=== PATIENT | male | born 2000 | race Caucasian/White ===

== ENCOUNTER 2021-07-27 11:16 | Emergency (ER) | payer BC, SELFPAY ==
[2021-07-27 11:35] VITALS: BP 137/72; PULSE 66; RESP 12; TEMP 36.5; O2SAT 99
--- NOTE | 2021-07-27 11:53 | ED.MALEGU ---
HPI - Male Genitourinary General Chief complaint: Urogenital-Male Stated complaint: discharge Time Seen by Provider: 07/27/21 12:00 Source: patient Mode of arrival: ambulatory Limitations: no limitations History of Present Illness HPI Narrative: 21-year-old male presented for complaint of urethral discharge, onset yesterday. States it started clear and today noticed slight green color. He endorses one sexual partner who was complaining of similar symptoms about 2 weeks ago, tested negative for STDs, but was treated at that time. However patient was not treated at that time. Patient requests treatment today. Denies abdominal pain, nausea, vomiting, diarrhea, dysuria, hematuria, hematospermia, testicular pain/swelling, fever or chills. Related Data Home Medications Medication Instructions Recorded Confirmed bupropion HCl mg PO 07/27/21 fluphenazine HCl mg 07/27/21 gabapentin 07/27/21 venlafaxine 150 mg PO DAILY 07/27/21 07/27/21 Allergies Allergy/AdvReac Type Severity Reaction Status Date / Time No Known Allergies Allergy Verified 07/27/21 11:35 Review of Systems Review of Systems: CONSTITUTIONAL: Denies body aches, fever, chills, or sweats. CARDIOVASCULAR: Denies chest pain, palpitations, or edema. RESPIRATORY: Denies cough or dyspnea. GASTROINTESTINAL: Denies abdominal pain, nausea, vomiting, or diarrhea. GENITOURINARY: Reports urethral discharge, denies dysuria, frequency, urgency, hematuria, flank pain SKIN: Denies rash, itching, or wounds. MUSCULOSKELETAL: Denies back pain or myalgia. PMFSH Comments At time of signature, I have reviewed and agree with nursing past medical, surgical, social and family history unless otherwise noted. Please see nursing chart for further information. There is no relevant family history pertinent to the presenting complaint Exam Narrative: GENERAL: Well-appearing and in no acute distress. HEAD: Normocephalic EYES: EOMI. No redness or drainage. ENT: Mucous membranes pink and moist. NECK: Normal AROM. Supple. CHEST: No respiratory distress. Clear to auscultation. HEART: Regular rate and rhythm. ABDOMEN: Soft, nontender, nondistended, normal active bowel sounds. No CVA tenderness MUSCULOSKELETAL: No bony tenderness. SKIN: Warm, dry, no rash. NEURO: No focal deficits. Alert and oriented x3. Gait steady. PSYCH: Normal affect. No signs of depression or anxiety. Course Course Emergency Course: Patient is aware of diagnosis, elects abx treatment at this time. We discussed safe sex practices and the importance of treating partner at the same time to avoid reinfection. Pt understands and agrees to treatment plan. Anticipatory guidance given. Patient agrees to follow-up as directed and is aware of reasons to seek care at the emergency department. Portions of this record may have been created with voice recognition software Level of Care: Express Care Visit Vital Signs Vital signs: Vital Signs Temperature 97.7 F 07/27/21 11:35 Pulse Rate 66 07/27/21 11:35 Respiratory Rate 12 07/27/21 11:35 Blood Pressure 137/72 07/27/21 11:35 Pulse Oximetry 99 07/27/21 11:35 Temperature 97.7 F 07/27/21 11:35 Pulse Rate 66 07/27/21 11:35 Respiratory Rate 12 07/27/21 11:35 Blood Pressure 137/72 07/27/21 11:35 Pulse Oximetry 99 07/27/21 11:35 Reviewed MDM - Male Genitourinary MDM Narrative Medical decision making narrative: Exam findings and UA show no acute concerns or changes; patient is non-toxic appearing and is in no distress. Patient is appropriate for outpatient treatment and follow-up. Will empirically treat for GC/Chlamydia/trichomoniasis with Ceftriaxone IM, flagyl, doxycycline. GC culture sent. Abstinence and safe sex precautions were provided and the patient verbalized understanding. Lab Data Labs: Urine Glucose Negative Reference Range: Negative Urine Bilir
[2021-07-27] MEDS: cefTRIAXone 500 MG, LIDOCAINE HCL 1% LOCAL INJ 1 ML IM (12:14)
== END 2021-07-27 12:39 | disposition home or self-care (01) ==
PROVIDERS: Emergency Provider Nurse Practitioner Family; PCP Family Medicine
DX: Z20.2 Contact with and (suspected) exposure to infections with a predominantly sexual mode of transmission (principal); F41.9 Anxiety disorder, unspecified; F32.A Depression, unspecified
CPT/HCPCS: 81003; 87491; 87591; 87661; 96372; 99213; G0463; J0696

== ENCOUNTER 2021-09-29 13:59 | Emergency (ER) | payer BC, SELFPAY ==
--- NOTE | ~2021-09-29 | CT_ITS ---
EXAMINATION: CT abdomen pelvis w con DATE: 09/29/2021 16:31 INDICATION: Lower abdominal and pelvic pain and pressure for 2 days TECHNIQUE: Computed tomography (CT) of the abdomen and pelvis was performed with 100 CC Omnipaque 350 intravenous contrast. Automated exposure control and iterative reconstruction technique were employe d. Exam dose: 366.23 mGy-cm total exam DLP. COMPARISON: None. FINDINGS: There is minimal focal patchy infiltrate in the left lower lobe. The lung bases are otherwi se clear of infiltrate or consolidation. Normal heart size. No pericardial or pleural effusion. The liver, gallbladder, bile ducts, spleen, pancreas, pancreatic duct, and adrenal glands are unremar kable. Several probable right renal cysts, measuring up to 7 mm. Approximately 12 mm probable left renal cys t. No urinary tract calculus or hydroureteronephrosis. The urinary bladder is unremarkable. Normal caliber of the abdominal aorta. No intraperitoneal or retroperitoneal or pelvic mass lesion or adenopathy or ascites. The prostate gland and urinary bladder are unremarkable. There is a mild amount of nonspecific free f luid in the dependent lower pelvis. No evidence of appendicitis. There is a prominent amount of fecal material in the colon but no bowel obstruction or intraperitoneal free air. IMPRESSION: Minimal focal patchy infiltrate in the left lower lobe Small nonspecific free fluid collection in the posterior dependent lower pelvis Reviewed, dictated and finalized at [facility]. Reviewed, dictated and finalized at [facility].
[2021-09-29 14:01] VITALS: BP 138/79; PULSE 78; RESP 16; TEMP 35.8; O2SAT 99
[2021-09-29 14:58] LABS: Add Urine Microscopic? YES; Appearance Urine Cloudy (Clear); Bilirubin Urine Negative (Negative); Blood Urine Negative (Negative); Color Urine Yellow (Yellow); Glucose Urine UA Negative (Negative); Ketones Urine Negative (Negative); Leukocyte Esterase Ur Negative LEU/UL (Negative); Mucus Urine Few /lpf; Nitrate Urine Negative (Negative); Protein Urine 1+ mg/dL (Negative); RBC Urine 0-2 /hpf (0-2); Specific Grav Ur 1.021 (1.001-1.035); Squamous Epithelial Cell Urine Rare /hpf (Few); Urobilinogen Urine Negative mg/dL (<2.0); WBC Urine 0-3 /hpf
--- NOTE | 2021-09-29 15:41 | ED.ABDPAIN ---
HPI - Abdominal Pain General Chief Complaint: Abdominal Pain Stated Complaint: pelvic pain Time Seen by Provider: 09/29/21 15:30 Source: patient Mode of arrival: ambulatory Limitations: no limitations History of Present Illness HPI narrative: Patient is 21 years old white male complaining of lower abdominal pain for the last 2 days. No radiation. Patient denies any fever, chills, nausea, vomiting, diarrhea, constipation, or urinary symptoms Related Data Home Medications Medication Instructions Recorded Confirmed bupropion HCl 150 mg PO DAILY 07/27/21 07/27/21 fluphenazine HCl 1 mg PO USEASDIRECTD 07/27/21 07/27/21 gabapentin 600 mg PO USEASDIRECTD 07/27/21 07/27/21 venlafaxine 150 mg PO DAILY 07/27/21 07/27/21 Allergies Allergy/AdvReac Type Severity Reaction Status Date / Time No Known Allergies Allergy Verified 07/27/21 11:35 Review of Systems Review of Systems: CONSTITUTIONAL: Denies fever, chills, or sweats. EYES: Denies visual changes, redness, or discharge. ENT: Denies rhinorrhea, congestion, sore throat, or otalgia. CARDIOVASCULAR: Denies chest pain, palpitations, or edema. RESPIRATORY: Denies cough or dyspnea. GASTROINTESTINAL: Denies abdominal pain, nausea, vomiting, or diarrhea. GENITOURINARY: Denies dysuria or hematuria. SKIN: Denies rash or itching. MUSCULOSKELETAL: Denies back pain, joint pain, or myalgia. NEUROLOGIC: Denies headache, numbness, or weakness. PSYCHIATRIC: Denies anxiety or depression. Exam Narrative: General appearance: Well-developed, well-nourished Skin: Normal color Head: Normocephalic, nontraumatic Eyes: Clear conjunctiva ENT: Oropharynx normal, ears normal, nose normal Neck: Supple, nontender Chest and respiratory: Airway patent, no respiratory distress, no accessory muscle use Heart: Regular rate/rhythm Abdomen: Soft, diffuse tenderness lower abdomen bilaterally mainly on the right lower quadrant, no organomegaly, quiet bowel sounds Vascular: Normal peripheral pulses, normal capillary refill. Musculoskeletal: Normal range of motion, nontender back Neurologic: Alert and oriented ?3, [employer] is normal as tested, no gross motor deficit Course Course Emergency Course: Stable Vital Signs Vital signs: Vital Signs Temperature 35.8 C L 09/29/21 14:01 Pulse Rate 78 09/29/21 14:01 Respiratory Rate 16 09/29/21 14:01 Blood Pressure 138/79 09/29/21 14:01 Pulse Oximetry 99 09/29/21 14:01 Temperature 35.8 C L 09/29/21 14:01 Pulse Rate 74 09/29/21 16:06 Respiratory Rate 16 09/29/21 16:06 Blood Pressure 125/88 09/29/21 16:06 Pulse Oximetry 100 09/29/21 16:06 MDM - Abdominal Pain MDM Narrative Medical decision making narrative: Patient presents with lower abdominal pain Work-up did not show any significant findings to explain the pain. Musculoskeletal is a possibility. Differential Diagnosis Differential diagnosis: Likely abdominal pain, constipation, diverticulitis and pancreatitis Lab Data Result diagrams: 09/29/21 15:58 09/29/21 15:58 Labs: Lab Results 09/29/21 09/29/21 09/29/21 Range/Units 14:47 15:58 15:58 WBC 6.5 (4.5-10.0) K/mm3 RBC 5.06 (4.6-6.20) M/mm3 Hgb 15.6 (14.0-18.0) g/dL Hct 45.1 (42.0-52.0) % MCV 89.1 (80-100) fl MCH 30.8 (26-34) pg MCHC 34.6 (32-36) g/dl RDW 13.5 (11.5-14.5) % Plt Count 246 (150-375) k/mm3 MPV 9.5 (7.4-10.4) fl Immature Gran % (Auto) 0.2 (0-0.5) % Neut % (Auto) 49.4 (45.5-73.1) % Lymph % (Auto) 39.3 (18.3-44.2) % [place] % (Auto) 10.0 H (2.6-8.5) % Eos % (Auto) 0.6 (0-4.4) % Baso % (Auto) 0.5 (0.2-1.2) % Lymph # (Auto) 2
[2021-09-29 16:05] LABS: Basophils Percent Auto 0.5 % (0.2-1.2); Eosinophils Percent Auto 0.6 % (0-4.4); Hematocrit 45.1 % (42.0-52.0); Hemoglobin 15.6 g/dL (14.0-18.0); Immature Granulocyte Absolute 0.01 K/mm3 (0.00-0.031); Immature Granulocyte Percent A 0.2 % (0-0.5); Lymphocytes Absolute Auto 2.56 K/mm3 (0.9-3.2); Lymphocytes Percent Auto 39.3 % (18.3-44.2); Mean Corpuscular HGB Conc 34.6 g/dl (32-36); Mean Corpuscular Hemoglobin 30.8 pg (26-34); Mean Corpuscular Volume 89.1 fl (80-100); Mean Platelet Volume 9.5 fl (7.4-10.4); Monocytes Absolute Auto 0.7 K/mm3 (0.1-0.6); Neutrophils Absolute Auto 3.2 K/mm3 (1.3-6.7); Neutrophils Percent Auto 49.4 % (45.5-73.1); Platelet Count Result 246 k/mm3 (150-375); Red Blood Count 5.06 M/mm3 (4.6-6.20); Red Cell Distribution Width 13.5 % (11.5-14.5); White Blood Count 6.5 K/mm3 (4.5-10.0)
[2021-09-29] MEDS: SODIUM CHLORIDE 0.9% IV 1,000 ML 999 ML IV CONT (16:05)
[2021-09-29 16:06] VITALS: BP 125/88; PULSE 74; RESP 16; O2SAT 100
[2021-09-29 16:15] LABS: Alanine Aminotransferase 44 U/L (4-50); Albumin Level 4.4 g/dL (3.5-5.1); Alkaline Phosphatase 72 U/L (38-126); Anion Gap 4 mmol/L (8-16); Aspartate Amino Transferase 44 U/L (17-59); Bilirubin,Total 0.4 mg/dL (0.2-1.3); Blood Urea Nitrogen 14 mg/dL (9-20); Carbon Dioxide 34 mmol/L (22-30); Chloride 102 mmol/L (98-107); Estimated CRCL calculation 77 ml/min; Estimated Glomerular Filt Rate > 60; Glucose 80 mg/dL (65-110); Lipase 34 U/L (23-300); Potassium 4.3 mmol/L (3.4-5.0); Sodium 140 mmol/L (137-145)
[2021-09-29 17:27] VITALS: BP 120/78; PULSE 78; RESP 18; O2SAT 98
== END 2021-09-29 17:29 | disposition home or self-care (01) ==
LOC: ANHED 15:50
PROVIDERS: Emergency Medicine; Emergency Provider Emergency Medicine; PCP Family Medicine
DX: R10.30 Lower abdominal pain, unspecified (principal)
CPT/HCPCS: 36415; 74177; 80053; 81001; 83690; 85025; 96360; 99284; J7030; Q9967

== ENCOUNTER 2021-11-03 12:30 | Outpatient (RCR) | payer BC, SELFPAY ==
--- NOTE | 2021-10-25 15:20 | PTOPEVAL ---
PHYSICAL THERAPY EVALUATION AND PLAN OF CARE 10-25-21 Thank you for referring Merrick Bermeo to [facility].? He has orders for neck and back pain. He reports more issues with neck pain, so the neck evaluation was completed today. He is scheduled to be seen for therapy? 2 x/week for 3 weeks. Please review, sign, date and return this plan of care CHRISTAL. I agree with and certify that the following plan of care is medically necessary. Referring Physician Date Attending Provider: Robbie Cowart MD Past Medical History Source of Past Medical History Patient Neurological History Hx Neurological Disorders No Significant History Cardiovascular History Hx Cardiac Disorders No Significant History Respiratory History Hx Respiratory Disorders No Significant History Gastrointestinal History Hx Irritable Bowel Yes Genitourinary History Hx Genitourinary Disorders No Significant History Musculoskeletal History Hx Back Pain Yes Hx Fractures Yes: finger Endocrine History Hx Endocrine Disorders No Significant History HEENT History Hx Tonsillectomy Yes: adenoidectomy Hx Other HEENT Disorders Yes: oral surgery Psychosocial History Hx Anxiety Yes: meds Hx Depression Yes: meds Other History Hx Other Medical Conditions Yes: on meds for infection over lower abdomen Evaluation Information Diagnosis neck pain Onset Jul 2021 Additional Evaluation Detail pt has orders for back pain and neck pain; he stated the neck was more of a concern at this time, so will begin with neck treatment; Subjective Information gradual increase in neck pain, Query Text:As Reported By Patient/ without an injury to neck; Family Diagnostic Tests X-Rays For This Problem No MRI For This Problem No Other Tests For This Problem No Previous Treatments Previous Treatments For This Problem no PT for neck; have had chiropractor 3-4x, helped short term Prior Level of Function Activity Level (Last 3 Months) Occupation student Hand Dominance Right Activity of Daily Living Ability Independent Indoor/Home Mobility Independent Community Mobility Independent Stairs Ability Independent Functional Cognition (Planning, Shopping Independent , Taking Medications) Cooking Yes Cleaning Yes Laundry Yes Shopping Yes Driving Yes Comments Additional Prior Level of Function d
--- NOTE | 2021-11-06 08:06 | PCPTNOTE ---
Patient did not show up for scheduled appointment this date; called and left voicemail for reminder on next appointment 11/08/21 @ 8am.
--- NOTE | 2021-11-08 08:00 | PCPTNOTE ---
Patient called & cancelled scheduled appointment this date due to just can't make it today.
--- NOTE | 2021-11-13 08:23 | PCPTNOTE ---
Patient did not show up for scheduled appointment this date. Called & had to leave a message.
--- NOTE | 2021-11-15 08:23 | PCPTNOTE ---
pt did not show for today's reeval; called and left voice mail message--call for reschedule or will be discharged.
--- NOTE | 2021-12-07 14:06 | PCPTNOTE ---
PHYSICAL THERAPY DISCHARGE 12-07-21 Attending Provider: Robbie Cowart MD Patient:Merrick Bermeo Date of :2000 Merrick has not returned for any further treatments since 11/03/2021, for the diagnosis of neck and back pain, therefore he will be discharged at this time. He received 3 PT sessions, called and canceled 1 and did not show for 3 appointments. Thank you for referring this patient to [facility]. Please review, sign, date and return this discharge summary CHRISTAL. I have been updated about the patient's current status and I agree with discharge from the above service at this time. Referring Physician Date
== END 2021-12-08 09:41 | disposition home or self-care (01) ==
LOC: ANHPT 12:30
PROVIDERS: PCP Family Medicine; Visit Provider Family Medicine
DX: M54.2 Cervicalgia (principal); M54.9 Dorsalgia, unspecified
CPT/HCPCS: 97014; 97110; 97112; 97161; G0283

== ENCOUNTER 2021-12-11 02:02 | Day surgery (SDC) | payer BC, SELFPAY ==
[2021-11-23 13:25] VITALS: BMI 25.1
--- NOTE | 2021-12-11 12:28 | WPDANESEPPF ---
Anes - Initial Pre Proc Eval Procedure: Operation Date: 12/11/21 14:00 Proposed Procedures p Colonoscopy - Lencho Richey MD Date/Time: 12/11/21 12:28 Surgeon: Lencho Richey MD Pre Op Diagnosis: mucus stools Patient Data Age: 21 Gender: M Height: 1.73 m Weight: 75 kg Allergies Allergy/AdvReac Type Severity Reaction Status Date / Time No Known Allergies Allergy Verified 12/11/21 12:48 Home Medications Medication Instructions Recorded Confirmed Type bupropion HCl 150 mg 24 hr tablet, 150 mg PO DAILY 07/27/21 11/23/21 History extended release fluphenazine HCl 1 mg tablet 1 mg PO USEASDIRECTD 07/27/21 11/23/21 History gabapentin 600 mg tablet 600 mg PO USEASDIRECTD 07/27/21 11/23/21 History venlafaxine 150 mg 150 mg PO DAILY 07/27/21 11/23/21 History capsule,extended release 24 hr emtricitabine 100 mg-tenofovir 1 tablet PO DAILY 11/23/21 11/23/21 History disoproxil fumarate 150 mg tablet (Truvada) Patient hx anesthesia problems: none Family hx anesthesia problems: none Results Review: All pre-operative results and documents have been reviewed as part of the pre-operative evaluation. [facility] Past Medical History Medical History (Updated 12/11/21 @ 12:34 by Devante Dewitt MD) Anxiety Depression IBS (irritable bowel syndrome) Prostatitis Social History Social History Smoking status: Never smoker Living arrangements: with family Spiritual care concerns: No Anes - Eval Final PreProcedure Day of Procedure 12/11/21 12:28 Patient weight: normal Heart: regular rate and rhythm Lungs: clear to auscultation and normal air movement Airway: Mallampati scale class II Neurological: alert and oriented Last oral intake: >/= 8 hours ASA classification: II Emergent: no Anesthetic plan: proceed Anesthesia type and monitoring: general GIVS Results Review: All pre-operative results and documents have been reviewed as part of the pre-operative evaluation. Informed Consent: The patient's anesthetic plan and its attendant risks and benefits were discussed with the patient/family/POA. Questions were solicited and answers provided to the satisfaction of the patient/family/POA.
[2021-12-11 12:50] VITALS: BP 116/73; PULSE 88; RESP 18; TEMP 36.7; O2SAT 100
[2021-12-11] MEDS: LACTATED RINGERS 1,000 ML 150 ML IV CONT (12:59)
--- NOTE | 2021-12-11 13:07 | PM.HPGS ---
History of Present Illness History of Present Illness Consent: Risks, benefits, and alternatives have been discussed and questions answered. Patient agrees to proceed with procedure. Chief complaint: mucus stools Narrative: Merrick Bermeo is a 21 year old male Referred for colonoscopy to investigate irregular bowel movements. He also has seen a great deal of mucus in the stools and occasionally sees blood as well. The blood can be on the stool or sometimes when he wipes himself after a bowel movement. His stool consistency varies. He will have loose stools and then may not have a bowel movement for a week. he Has been taking Metamucil daily. There is a strong family history of colon cancer including his mother and paternal grand mother. Review of Systems Review of Systems: All systems reviewed & are unremarkable except as noted in HPI and below PMFSH Past Medical History Medical History Anxiety Depression IBS (irritable bowel syndrome) Prostatitis Social History Social History Smoking status: Never smoker Living arrangements: with family Spiritual care concerns: No Meds Home Medications and Allergies Home Medications Medication Instructions Recorded Confirmed Type bupropion HCl 150 mg 24 hr tablet, 150 mg PO DAILY 07/27/21 11/23/21 History extended release fluphenazine HCl 1 mg tablet 1 mg PO USEASDIRECTD 07/27/21 11/23/21 History gabapentin 600 mg tablet 600 mg PO USEASDIRECTD 07/27/21 11/23/21 History venlafaxine 150 mg 150 mg PO DAILY 07/27/21 11/23/21 History capsule,extended release 24 hr emtricitabine 100 mg-tenofovir 1 tablet PO DAILY 11/23/21 11/23/21 History disoproxil fumarate 150 mg tablet (Truvada) Allergies Allergy/AdvReac Type Severity Reaction Status Date / Time No Known Allergies Allergy Verified 12/11/21 12:48 Vital Signs Vital Signs - 24 hr 12/11/21 12:50 Temperature 36.7 C Pulse Rate 88 Respiratory Rate 18 Blood Pressure 116/73 Pulse Oximetry 100 Oxygen Delivery Room Air Exam Const: General: alert Orientation/consciousness: patient oriented x3 Resp: Auscultation: clear to auscultation bilaterally Cardio: Rhythm: regular rhythm GI: GI Palp: Yes Soft to palpation and No Tenderness to palpation present (GI) Neuro: General: patient oriented x3 Assessment and Plan Assessment and plan (1) Blood in stool: Code(s): K92.1 - Melena Status: Acute Assessment and Plan: Colonoscopy with possible biopsy or polypectomy or cautery or injection of substances.
[2021-12-11 13:51] VITALS: BP 97/58; PULSE 78; RESP 15; O2SAT 100
[2021-12-11 14:01] VITALS: BP 91/56; PULSE 65; RESP 13; O2SAT 100
[2021-12-11 14:11] VITALS: BP 96/62; PULSE 75; RESP 17; O2SAT 100
== END 2021-12-11 14:23 | disposition home or self-care (01) ==
PROVIDERS: PCP Family Medicine; Visit Provider Internal Medicine Gastroenterology
PROC: 0DJD8ZZ Inspection of Lower Intestinal Tract, Via Natural or Artificial Opening Endoscopic (ICD-10-PCS; CPT 45378; principal; 2021-12-11 14:00)
DX: K92.1 Melena (principal); R19.7 Diarrhea, unspecified; K59.00 Constipation, unspecified; F41.9 Anxiety disorder, unspecified; F32.A Depression, unspecified; K58.9 Irritable bowel syndrome, unspecified
CPT/HCPCS: 45378; J2704; J7120

== ENCOUNTER 2023-01-21 14:04 | Outpatient (CLI) | payer OTHER, SELFPAY ==
[2023-01-21 15:26] LABS: Hematocrit 45.1 % (42.0-52.0); Hemoglobin 15.2 g/dL (14.0-18.0); Mean Corpuscular HGB Conc 33.7 g/dl (32-36); Mean Corpuscular Hemoglobin 29.9 pg (26-34); Mean Corpuscular Volume 88.8 fl (80-100); Platelet Count Result 227 k/mm3 (150-375); Red Blood Count 5.08 M/mm3 (4.6-6.20); Red Cell Distribution Width 12.1 % (11.5-14.5); White Blood Count 6.5 K/mm3 (4.5-10.0)
[2023-01-21 15:38] LABS: Alanine Aminotransferase 49 U/L (6-50); Albumin Level 4.6 g/dL (3.5-5.1); Alkaline Phosphatase 63 U/L (38-126); Anion Gap 8 mmol/L (8-16); Aspartate Amino Transferase 33 U/L (17-59); Bilirubin,Total 0.6 mg/dL (0.2-1.3); Blood Urea Nitrogen 25 mg/dL (9-20); Calcium 9.6 mg/dL (8.4-10.2); Carbon Dioxide 32 mmol/L (22-30); Chloride 98 mmol/L (98-107); Estimated Glomerular Filt Rate > 60; Glucose 78 mg/dL (65-110); Potassium 3.9 mmol/L (3.4-5.0); Sodium 138 mmol/L (137-145)
[2023-01-21 20:42] LABS: Thyroid Stimulating Hormone Reflex 0.636 uIU/mL (0.465-4.68)
== END 2023-01-21 14:05 | disposition home or self-care (01) ==
LOC: ANHLAB 14:06
PROVIDERS: PCP Family Medicine; Visit Provider Nurse Practitioner
DX: R10.13 Epigastric pain (principal)
CPT/HCPCS: 36415; 80053; 84443; 85027